=== PATIENT | male | born 1975 | race Caucasian/White ===

== ENCOUNTER 2022-03-18 18:46 | Emergency (ER) | payer SELFPAY ==
[2022-03-18 19:02] VITALS: BP 146/86; PULSE 88; RESP 16; TEMP 36.9; O2SAT 100
--- NOTE | 2022-03-18 19:45 | ED.BACK ---
HPI - Back Pain/Injury General Chief Complaint: Back Pain/Injury Stated Complaint: Muscle Spasms in back Time Seen by Provider: 03/18/22 19:45 Source: patient Mode of arrival: ambulatory Limitations: no limitations History of Present Illness HPI Narrative: 46-year-old male presents with complaint of muscle spasm to right side neck and upper back. States that started several days ago. Has a history of muscle spasms in this area. Does have prescribed muscle relaxant but he left at home. Patient is here from out of town on work. Denies any new injury. Reports that he has a history of spurring to his neck. He is having some decreased range of motion due to his pain. All systems reviewed and negative except as noted above. Related Data Allergies Allergy/AdvReac Type Severity Reaction Status Date / Time No Known Allergies Allergy Verified 03/18/22 18:58 Review of Systems Review of Systems: CONSTITUTIONAL: Denies fever, chills, or sweats. EYES: Denies visual changes, redness, or discharge. ENT: Denies rhinorrhea, congestion, sore throat, or otalgia. CARDIOVASCULAR: Denies chest pain, palpitations, or edema. RESPIRATORY: Denies cough or dyspnea. GASTROINTESTINAL: Denies abdominal pain, nausea, vomiting, or diarrhea. GENITOURINARY: Denies dysuria or hematuria. SKIN: Denies rash or itching. MUSCULOSKELETAL: Denies back pain, joint pain, or myalgia. Reports right-sided neck pain/upper back pain. NEUROLOGIC: Denies headache, numbness, or weakness. PSYCHIATRIC: Denies anxiety or depression. All other systems reviewed are negative, except as documented in HPI. PMFSH Comments At time of signature, agree with nursing past medical, surgical, social and family history. There is no relevant family history pertinent to the presenting complaint. Exam Narrative: GENERAL: This is a well-nourished, well-developed patient, in no apparent distress. HEAD: normocephalic, atraumatic. EYES: PERRL. Sclera clear/white. Vision is grossly intact. EARS: External ears normal NOSE: External nose normal NECK: Neck supple, decreased range of motion due to pain. Right trapezius tenderness and spasm. CARDIOVASCULAR: Regular rate and rhythm without murmurs, gallops, or rubs. RESPIRATORY: Clear to auscultation. Breath sounds equal bilaterally. No wheezes, rales, or rhonchi. SKIN: warm, Dry, intact with no suspicious lesions or rash, good texture and turgor. NEURO: awake, alert, and oriented to person, place and time. There were no obvious focal neurologic abnormalities. EXTREMITIES: Normal range of motion to all extremities. Back/Spine/Pelvis: Back/spine/pelvis image: 1. Muscle spasm. Course Course Level of Care: Express Care Visit Vital Signs Vital signs: Vital Signs Temperature 36.9 C 03/18/22 19:02 Pulse Rate 88 03/18/22 19:02 Respiratory Rate 16 03/18/22 19:02 Blood Pressure 146/86 H 03/18/22 19:02 Pulse Oximetry 100 03/18/22 19:02 Temperature 36.9 C 03/18/22 19:02 Pulse Rate 88 03/18/22 19:02 Respiratory Rate 16 03/18/22 19:02 Blood Pressure 146/86 H 03/18/22 19:02 Pulse Oximetry 100 03/18/22 19:02 Reviewed MDM - Back Pain/Injury MDM Narrative Medical decision making narrative: Patient is aware of diagnosis, understands and agrees to treatment plan. Anticipatory guidance given. Patient agrees to follow-up as directed and is aware of reasons to seek care at the emergency department. Portions of this record may have been created with voice recognition software Discharge Plan Discharge Clinical Impression: Cervical paraspinal muscle spasm Patient Disposition: Home, Self-Care Condition: Stable Instructions: Muscle Spasm (ED) Additional Instructions: Take muscle relaxant as prescribed. Do not drive when taking this medication. It may cause drowsiness. Alternate between ice and heat. Do light stretching exercises as tolerated. Continue taking ibuprofen every 6-8 hours as needed
== END 2022-03-18 20:00 | disposition home or self-care (01) ==
PROVIDERS: Emergency Provider Nurse Practitioner Family
DX: M62.838 Other muscle spasm (principal); I10 Essential (primary) hypertension
CPT/HCPCS: 99203; G0463